=== PATIENT | male | born 1995 | race Caucasian/White ===

== ENCOUNTER 2020-07-31 20:57 | Emergency (ER) | payer MEDICAID ==
[~2020-07-31] VITALS: Ht 167.6 cm; Wt 84.0 kg
[2020-07-31] MEDS: IBUPROFEN 600MG TABLET PO STA (22:59)
[2020-07-31] MEDS ORDERED: IBUP-2029 PO (23:38)
[2020-07-31] MEDS ORDERED: CYCL25PO21 PO (23:38)
[2020-07-31 23:48] VITALS: BP 122/81
== END 2020-07-31 23:50 | disposition home or self-care (01) ==
LOC: ER 20:57 → EDBD 20:57 → ER 23:50
DX: S00.93XA Contusion of unspecified part of head, initial encounter (principal); M25.531 Pain in right wrist; M25.562 Pain in left knee; F12.10 Cannabis abuse, uncomplicated; V43.52XA Car driver injured in collision with other type car in traffic accident, initial encounter; W22.11XA Striking against or struck by driver side automobile airbag, initial encounter; Y93.89 Activity, other specified; Y92.89 Other specified places as the place of occurrence of the external cause; Y99.8 Other external cause status
CPT/HCPCS: 73110; 73562; 99284